=== PATIENT | female | born 1990 | race Caucasian/White ===

== ENCOUNTER 2017-02-18 14:18 | Emergency (ER) | payer OTHER ==
--- NOTE | 2017-02-18 15:04 | ER Document Report ---
ED Medical Screen (RME) - General Stated Complaint: LEG SWELLING,REDNESS, PAIN Mode of Arrival: Ambulatory Information source: Patient Notes: Patient presents to emergency department with right lower leg pain and swelling. Patient is 33 weeks . Patient recently drove back from [place] approximately 7 hours. She reports slight pain and discomfort in the right lower leg.
--- NOTE | 2017-02-18 16:26 | XCELERA REPORT ---
[address] [address] Lower Extremity Venous Evaluation Name: MADISYN MOREAU Age: 26 yrs Gender: Female : 1990 Patient Status: Preadmit Patient Location: ER Study Date: 02/18/2017 03:13 PM Procedure: Color flow and duplex imaging of the veins of the right lower extremity as well as the left Common Femoral vein. Reason For Study: RLE PAIN SWELLING Ordering Physician: CARLEY FALK Performed By: Magdalena Alex Right Sided Venous Evaluation Normal vessel filling wall to wall, compression and augmentation as well as Colour flow down to the infrageniculate veins. Left Sided Venous Evaluation The left common femoral vein is fully compressible. Spontaneous and phasic flow is present in the left common femoral vein. Critical Findings Discussed with Veronica Mckeon at about 1600. Interpretation Summary No duplex evidence of DVT or obstruction in the right lower extremity nor in the left Common Femoral vein. : CARLEY FALK > Norberto Lora
[2017-02-18 18:07] VITALS: BP 116/68
--- NOTE | 2017-02-18 18:10 | ER Document Report ---
ED Extremity Problem, Lower - General Chief Complaint: Leg Swelling Stated Complaint: LEG SWELLING,REDNESS, PAIN Time seen by provider: 17:56 Mode of Arrival: Ambulatory Information source: Patient Notes: 26-year-old female presents to ED for complaint of bilateral leg swelling right worse than left. She is 33 weeks states she just drove from [place] to [place] about 7 hours. She reports she did have slight pain in the right lower leg but now she states that they just feel tight from the swelling. She states her blood pressure normally is 117/70 and today her blood pressure is 133/65. - HPI Patient complains to provider of: Pain, Swelling Location: Leg Occurred: This morning Onset/Duration: Gradual Quality of pain: Other - Tight Severity: Mild Pain Level: 1 Context: Other - Legs feel tight Recent injury: No Exacerbated by: Nothing Relieved by: Elevation, Rest - Related Data Allergies/Adverse Reactions: No Known Allergies Allergy (Verified 02/18/17 18:13) Past Medical History - General Information source: Patient - Social History Smoking Status: Never Smoker Cigarette use (# per day): No Chew tobacco use (# tins/day): No Smoking Education Provided: No Frequency of alcohol use: None Drug Abuse: None Lives with: Family Family History: Reviewed & Not Pertinent - Past Medical History Cardiac Medical History: Reports: None Pulmonary Medical History: Reports: None EENT Medical History: Reports: None Neurological Medical History: Reports: None Endocrine Medical History: Reports: None Renal/ Medical History: Reports: None Malignancy Medical History: Reports: None GI Medical History: Reports: None Musculoskeltal Medical History: Reports None Skin Medical History: Reports None Psychiatric Medical History: Reports: None Traumatic Medical History: Reports: None Infectious Medical History: Reports: None Surgical Hx: Negative Past Surgical History: Reports: None Review of Systems - Review of Systems Constitutional: No symptoms reported EENT: No symptoms reported Cardiovascular: No symptoms reported Respiratory: No symptoms reported Gastrointestinal: No symptoms reported Genitourinary: No symptoms reported Female Genitourinary: No symptoms reported Musculoskeletal: Leg swelling, Ankle swelling Skin: No symptoms reported Hematologic/Lymphatic: No symptoms reported Neurological/Psychological: No symptoms reported -: Yes All other systems reviewed and negative Physical Exam - Vital signs Vitals: Temp Pulse BP Pulse Ox 97.5 F 77 133/65 H 98 02/18/17 14:59 02/18/17 14:59 02/18/17 14:59 02/18/17 14:59 Interpretation: Normal. No: Hypertensive - Blood pressure is 116/68 on the left in 116/64 on the right she is not hypertensive - General General appearance: Appears well, Alert - HEENT Head: Normocephalic, Atraumatic Eyes: Normal Pupils: PERRL - Respiratory Respiratory status: No respiratory distress Chest status: Nontender Breath sounds: Normal Chest palpation: Normal - Cardiovascular Rhythm: Regular Heart sounds: Normal auscultation Murmur: No - Abdominal Inspection: Normal Distension: No distension Bowel sounds: Normal Tenderness: Nontender Organomegaly: No organomegaly - Back Back: Normal, Nontender - Extremities General upper extremity: Normal inspection, Nontender, Normal color, Normal ROM , Normal temperature General lower extremity: Normal inspection, Nontender, Normal color, Normal ROM , Normal temperature, Normal weight bearing Calf: No: Tender - States her cast feels tight but are not tender to the touch Left calf in cm: 41 Right calf in cm: 41 Ankle: Edema - Mild edema less than 2+ Foot: Edema - Mild edema less than 2+ - Neurological Neuro grossly intact: Yes Cognition: Normal Orientation: AAOx4 Quang Coma Scale Eye Opening: Spontaneous [place] Coma Scale Verbal: Oriented [place] Coma Scale Motor: Obeys Commands Quang Coma Scale Total: 15 Speech: Normal Motor strength normal: LUE, RUE, LLE, RLE Sensory: Normal - Psychological Associated symptoms: Normal affect, Normal mood - Skin Skin Temperature: Warm Skin Moisture: Dry Skin Color: Normal Course - Re-evaluation Re-evalutation: 02/18/17 18:[address] Shaw with the results of the Doppler blood pressure and urine. Discussed results with patient and will discharge patient home to follow -up with her CASING OPERATOR. She is to take a copy of the Doppler and labs with her to her CASING OPERATOR appointment on the - Vital Signs Vital signs: Temp Pulse Resp BP Pulse Ox 97.5 F 77 116/68 98 02/18/17 14:59 02/18/17 14:59 02/18/17 18:06 02/18/17 14:59 Discharge - Discharge Clinical Impression: Leg swelling in in third trimester Condition: Stable Disposition: HOME, SELF-CARE Additional Instructions: You were seen today for some swelling to your legs. With some tightness after you traveled to [place] and back. Your venous Doppler does not show any clot. Your urine is negative for any protein. Your repeat blood pressure was 116/ 68 on the left and 116/64 on the right. You will need to go home and relax, elevate your legs, and follow-up with your CASING OPERATOR in the next 2-3 days. FOLLOW-UP CARE: If you have been referred to a physician for follow-up care, call the physician s office for an appointment as you were instructed or within the next two days. If you experience worsening or a significant change in your symptoms, notify the physician immediately or return to the Emergency Department at any time for re-evaluation.
[2017-02-18 18:11] LABS: AMORPHOUS SEDIMENT,URINE TRACE /HPF; APPEARANCE,URINE SLIGHTLY-CLOUDY; BILIRUBIN,URINE NEGATIVE (NEGATIVE); GLUCOSE, URINE NEGATIVE (NEGATIVE); KETONES,URINE NEGATIVE (NEGATIVE); LEUKOCYTE ESTERASE,URINE NEGATIVE (NEGATIVE); NITRITE,URINE NEGATIVE (NEGATIVE); PROTEIN,URINE NEGATIVE (NEGATIVE); URINE SPECIFIC GRAVITY 1.008; UROBILINOGEN,URINE NEGATIVE mg/dL (<2.0)
== END 2017-02-18 18:29 | disposition home or self-care (01) ==
LOC: ER 14:18
DX: O26.93 Pregnancy related conditions, unspecified, third trimester (principal); R22.43 Localized swelling, mass and lump, lower limb, bilateral; Z3A.33 33 weeks gestation of pregnancy
CPT/HCPCS: 81001; 87086; 93971; 99283

== ENCOUNTER 2017-04-04 12:33 | Outpatient (CLI) | payer OTHER ==
[2017-04-04 15:37] LABS: ABSOLUTE LYMPHOCYTES (AUTO) 2.2 10^3/uL (0.5-4.7); ABSOLUTE MONOCYTES (AUTO) 0.5 10^3/uL (0.1-1.4); ABSOLUTE NEUT (AUTO) 9.4 10^3/uL (1.7-8.2); BASOPHILS % (AUTO) 0.4 % (0-2); EOSINOPHILS % (AUTO) 0.3 % (0-6); HEMATOCRIT 39.5 % (36.0-47.0); HEMOGLOBIN 12.8 g/dL (12.0-15.5); HGB HCT DIFFERENCE -1.1; LYMPHOCYTES % (AUTO) 17.8 % (13-45); MEAN CORPUSCULAR HEMOGLOBIN 27.3 pg (27.0-33.4); MEAN CORPUSCULAR HGB CONC 32.4 g/dL (32.0-36.0); MEAN CORPUSCULAR VOLUME 84 fl (80-97); MONOCYTES % (AUTO) 4.4 % (3-13); RED BLOOD COUNT 4.69 10^6/uL (3.72-5.28); RED CELL DISTRIBUTION WIDTH 14.5 % (11.5-14.0); SEGMENTED NEUTROPHILS % (AUTO) 77.1 % (42-78); WHITE BLOOD COUNT 12.2 10^3/uL (4.0-10.5)
[2017-04-04 15:54] LABS: ALANINE AMINOTRANSFERASE 19 U/L (9-52); ALBUMIN 3.2 g/dL (3.5-5.0); ALKALINE PHOSPHATASE 157 U/L (38-126); ANION GAP 9 (5-19); ASPARTATE AMINO TRANSFERASE 14 U/L (14-36); BILIRUBIN,DIRECT 0.2 mg/dL (0.0-0.4); BILIRUBIN,TOTAL 0.4 mg/dL (0.2-1.3); BLOOD UREA NITROGEN 6 mg/dL (7-20); CALCIUM 9.7 mg/dL (8.4-10.2); CARBON DIOXIDE 23 mmol/L (22-30); CHLORIDE 104 mmol/L (98-107); GLUCOSE 70 mg/dL (75-110); LDH 358 U/L (313-618); POTASSIUM 4.3 mmol/L (3.6-5.0); SODIUM 136.2 mmol/L (137-145); TOTAL PROTEIN 6.2 g/dL (6.3-8.2)
[2017-04-04 16:15] LABS: APPEARANCE,URINE CLEAR; BILIRUBIN,URINE NEGATIVE (NEGATIVE); GLUCOSE, URINE NEGATIVE (NEGATIVE); KETONES,URINE NEGATIVE (NEGATIVE); LEUKOCYTE ESTERASE,URINE TRACE (NEGATIVE); NITRITE,URINE NEGATIVE (NEGATIVE); PROTEIN,URINE NEGATIVE (NEGATIVE); URINE SPECIFIC GRAVITY 1.001; UROBILINOGEN,URINE NEGATIVE mg/dL (<2.0)
[2017-04-04 16:37] LABS: URINE BARBITURATES SCREEN NEGATIVE; URINE METHADONE SCREEN NEGATIVE; URINE OPIATES LOW NEGATIVE; URINE PHENCYCLIDINE SCREEN NEGATIVE
[2017-04-04 16:41] LABS: URINE CREATININE 7.5 mg/dL (16-327); URINE PROTEIN 14.6 mg/dL (<12)
== END 2017-04-04 16:31 | disposition home or self-care (01) ==
LOC: LC 12:33
PROVIDERS: ATTEND Obstetrics & Gynecology
PROC: 4A1HXCZ Monitoring of Products of Conception, Cardiac Rate, External Approach (ICD-10-PCS; principal; 2017-04-04)
DX: O48.0 Post-term pregnancy (principal); Z3A.40 40 weeks gestation of pregnancy
CPT/HCPCS: 36415; 59025; 80053; 80307; 81001; 82570; 83615; 84156; 84550; 85025

== ENCOUNTER 2017-04-04 19:06 | Inpatient (IN) | payer OTHER ==
[2017-04-04 20:00] LABS: ABSOLUTE EOSINOPHILS # (AUTO) 0.1 10^3/uL (0.0-0.6); ABSOLUTE LYMPHOCYTES (AUTO) 2.8 10^3/uL (0.5-4.7); ABSOLUTE MONOCYTES (AUTO) 0.9 10^3/uL (0.1-1.4); ABSOLUTE NEUT (AUTO) 8.9 10^3/uL (1.7-8.2); BASOPHILS % (AUTO) 0.3 % (0-2); EOSINOPHILS % (AUTO) 0.4 % (0-6); HEMATOCRIT 36.2 % (36.0-47.0); HEMOGLOBIN 11.8 g/dL (12.0-15.5); HGB HCT DIFFERENCE -0.8; LYMPHOCYTES % (AUTO) 21.9 % (13-45); MEAN CORPUSCULAR HEMOGLOBIN 27.4 pg (27.0-33.4); MEAN CORPUSCULAR HGB CONC 32.6 g/dL (32.0-36.0); MEAN CORPUSCULAR VOLUME 84 fl (80-97); MONOCYTES % (AUTO) 6.7 % (3-13); RED CELL DISTRIBUTION WIDTH 14.5 % (11.5-14.0); SEGMENTED NEUTROPHILS % (AUTO) 70.7 % (42-78); WHITE BLOOD COUNT 12.6 10^3/uL (4.0-10.5)
[2017-04-04 20:03] LABS: APPEARANCE,URINE SLIGHTLY-CLOUDY; BILIRUBIN,URINE NEGATIVE (NEGATIVE); GLUCOSE, URINE NEGATIVE (NEGATIVE); KETONES,URINE NEGATIVE (NEGATIVE); LEUKOCYTE ESTERASE,URINE NEGATIVE (NEGATIVE); NITRITE,URINE NEGATIVE (NEGATIVE); PROTEIN,URINE NEGATIVE (NEGATIVE); URINE SPECIFIC GRAVITY 1.014; UROBILINOGEN,URINE NEGATIVE mg/dL (<2.0)
[2017-04-04 20:23] LABS: URINE BARBITURATES SCREEN NEGATIVE; URINE METHADONE SCREEN NEGATIVE; URINE OPIATES LOW NEGATIVE; URINE PHENCYCLIDINE SCREEN NEGATIVE
[2017-04-04] MEDS ORDERED: RINGERS SOLUTION,LACTATED 300 ML IV ONE (20:33)
[2017-04-04] MEDS ORDERED: RINGERS SOLUTION,LACTATED 1,000 ML IV PRN (20:33)
[2017-04-04] MEDS: MISOPROSTOL 0.1 MG TABLET PV SCH (22:23)
[2017-04-04] MEDS ORDERED: MISOPROSTOL 0.1 MG TABLET ONE (22:23)
[2017-04-04] MEDS: MISOPROSTOL 0.1 MG TABLET PO SCH (22:24)
[2017-04-05] MEDS ORDERED: MISOPROSTOL 0.1 MG TABLET ONE (02:19)
[2017-04-05] MEDS: MISOPROSTOL 0.1 MG TABLET PV SCH (02:21)
[2017-04-05] MEDS: MISOPROSTOL 0.1 MG TABLET PO SCH (02:21)
[2017-04-05] MEDS ORDERED: BENZOIN/ALOE VERA/STORAX/TOLU TINCTURE 60 ML TP PRN (03:09)
[2017-04-05] MEDS ORDERED: EPHEDRINE SULFATE INJ 50 MG/1 ML AMPULE IV PRN (03:09)
[2017-04-05] MEDS ORDERED: FENTANYL/BUPIVACAINE/NS/PF 100 ML EPI PRN (03:09)
[2017-04-05] MEDS ORDERED: BUPIVACAINE HCL 0.25 % INJ/PF (2.5 MG/1 ML) 30 ML VIAL INFIL ONE (03:09)
[2017-04-05] MEDS ORDERED: EPHEDRINE SULFATE INJ 50 MG/1 ML AMPULE IV ONE (03:09)
[2017-04-05] MEDS ORDERED: CITRIC ACID/SODIUM CITRATE ORAL SOLN 15 ML UDCUP ONE (05:21)
[2017-04-05] MEDS ORDERED: CEFAZOLIN 2 GM/D5W RTU 2 GM/50 ML RTUPB IV ONE (05:21)
[2017-04-05] MEDS ORDERED: LIDOCAINE 2% INJ-PF (20 MG/ML) 10 ML AMPUL ONE (05:33)
[2017-04-05] MEDS ORDERED: EPHEDRINE SULFATE INJ 50 MG/1 ML AMPULE ONE ×2 (05:37→05:47)
[2017-04-05] MEDS ORDERED: FENTANYL/BUPIVACAINE/NS/PF 200 MCG/100 ML RTUINJ EPI ONE (05:38)
[2017-04-05] MEDS ORDERED: BUPIVACAINE HCL 0.25 % INJ/PF (2.5 MG/1 ML) 30 ML VIAL ONE (05:38)
[2017-04-05] MEDS ORDERED: ONDANSETRON HCL INJ/PF 4 MG/2 ML SDV ONE (05:45)
[2017-04-05] MEDS ORDERED: FENTANYL CITRATE INJ/PF 100 MCG/2 ML AMPUL ONE (05:47)
[2017-04-05] MEDS ORDERED: OXYTOCIN 10 UNIT/ML VIAL ONE (05:47)
[2017-04-05] MEDS ORDERED: MIDAZOLAM 2 MG/2 ML INJ ONE (05:47)
[2017-04-05] MEDS ORDERED: PROPOFOL INJ 200 MG/20 ML VIAL IV ONE (05:47)
[2017-04-05] MEDS ORDERED: ONDANSETRON HCL INJ/PF 4 MG/2 ML SDV IV ONE (06:00)
[2017-04-05] MEDS ORDERED: FENTANYL CITRATE INJ/PF 100 MCG/2 ML AMPUL IV PRN ×3 (06:17)
[2017-04-05] MEDS ORDERED: OXYCODONE-ACETAMINOPHEN 5-325 MG TABLET PO PRN ×3 (06:17→11:43)
[2017-04-05] MEDS ORDERED: MEPERIDINE HCL/PF INJ 25 MG/1 ML DISP.SYRIN IV PRN (06:17)
[2017-04-05] MEDS ORDERED: DIPHENHYDRAMINE HCL 50 MG/ML VIAL IV PRN (06:17)
[2017-04-05] MEDS ORDERED: MORPHINE SULFATE 10 MG/ML INJ IV PRN (06:17)
--- NOTE | 2017-04-05 08:29 | OPERATIVE REPORT E ---
Operative Report NAME: MADISYN MOREAU : 1990 AGE: 26Y DATE OF SURGERY: 04/05/2017 ROOM: LR200 PREOPERATIVE DIAGNOSES: 1. INTRAUTERINE AT 40 WEEKS 1 DAY. 2. PREECLAMPSIA WITH MILD FEATURES. 3. NONREASSURING HEART TONES. POSTOPERATIVE DIAGNOSES: 1. INTRAUTERINE AT 40 WEEKS 1 DAY. 2. PREECLAMPSIA WITH MILD FEATURES. 3. NONREASSURING HEART TONES. OPERATION: Low transverse hysterotomy section. SURGEON: MATILDE ARNOLD M.D. ANESTHESIA: Spinal, Montrell Huitron MD ESTIMATED BLOOD LOSS: 600 mL. PATHOLOGY: None. FINDINGS: Female infant in cephalic presentation with Apgars of 9 and 9. Weight 6 pounds 8 ounces. PROCEDURE IN DETAIL: The patient was taken to the operating room and prepared and draped in the normal sterile fashion in the supine position with a left campoverde tilt. Transverse skin incision was made with the scalpel and carried through to the underlying layer of the fascia with the same scalpel. The fascia was excised in the midline and extended laterally with De Souza scissors. The rectus muscles were dissected from the rectus muscles sharply with De Souza scissors. The rectus muscle was divided and the peritoneum was entered bluntly with surgeon finger fracture. The bladder blade was inserted with good visualization of the bladder and the uterus. The hysterotomy was nicked with a scalpel and extended laterally with surgeon finger fracture. The was then delivered atraumatically. The nose and mouth were suctioned with the suction bulb and cord was clamped and cut. The was handed off to the waiting pediatricians. The cord blood was collected and the placenta was removed manually. The uterus was exteriorized, cleared of clots and debris and the hysterotomy was closed with 0 Monocryl in a running locked fashion. A second layer of the same suture was used to imbricate to ensure hemostasis. The uterus was then returned to the abdomen. The peritoneal cavity was cleared of clots and debris. The rectus muscle and peritoneum were reapproximated with 2-0 chromic with a mattress suture. The fascia was closed with 0 Vicryl. The subcutaneous layer was closed with plain catgut and the skin was closed with 4-0 Vicryl. The patient tolerated the procedure well. Sponge, lap, and needle counts were correct x2 and the patient was taken to recovery in stable condition. DICTATING PHYSICIAN: MATILDE ARNOLD M.D. [id number] PHY#: [id number] ID: [id number] JOB#: [id number] ACCT: [id number] cc:MATILDE ARNOLD M.D. >
[2017-04-05] MEDS ORDERED: BENZOCAINE/MENTHOL AEROSOL SPRAY 56 ML TOP PRN (08:40)
[2017-04-05] MEDS ORDERED: MEASLES,MUMPS&RUBELLA VACC/PF 0.5 ML VIAL SUBCUT PRN ×2 (08:40→11:43)
[2017-04-05] MEDS ORDERED: ZOLPIDEM TARTRATE 5 MG TABLET PO PRN (08:40)
[2017-04-05] MEDS ORDERED: MAGNESIUM HYDROXIDE SUSP 30 ML UDCUP PO PRN (08:40)
[2017-04-05] MEDS ORDERED: PSEUDOEPHEDRINE HCL 30 MG TABLET PO PRN (08:40)
[2017-04-05] MEDS ORDERED: DIPHENHYDRAMINE HCL 25 MG CAPSULE PO PRN (08:40)
[2017-04-05] MEDS ORDERED: DIBUCAINE 1% OINTMENT 28 GM TP PRN (08:40)
[2017-04-05] MEDS ORDERED: ACETAMINOPHEN 650 MG SUPP.RECT PR PRN (08:40)
[2017-04-05] MEDS ORDERED: DIPH/PERTUSS(ACELL)/TETANUS VAC/PF 0.5 ML SYR (>=10YO) IM PRN ×2 (08:40→11:43)
[2017-04-05] MEDS ORDERED: OXYTOCIN/NORMAL SALINE 1,000 ML IV PRN ×2 (08:40→11:43)
[2017-04-05] MEDS ORDERED: PROMETHAZINE HCL 25 MG TABLET PO PRN (08:40)
[2017-04-05] MEDS ORDERED: NA PHOS,M-B/NA PHOS,DI-BA (ADULT) 133 ML ENEMA PR PRN (08:40)
[2017-04-05] MEDS ORDERED: PROMETHAZINE HCL INJ 25 MG/1 ML VIAL IV PRN ×2 (08:40→11:43)
[2017-04-05] MEDS ORDERED: GLYCERIN/WITCH HAZEL LEAF 1 EACH MED..PAD TP PRN (08:40)
[2017-04-05] MEDS ORDERED: PROMETHAZINE HCL 25 MG SUPP.RECT PR PRN (08:40)
[2017-04-05] MEDS ORDERED: ACETAMINOPHEN WITH CODEINE #3 TABLET PO PRN ×2 (08:40)
--- NOTE | 2017-04-05 08:46 | Admission Physical ---
Datetime Report Generated by CPN: 04/05/2017 08:45 CURRENT ADMISSION Chief Complaint: Scheduled Induction of Labor Indication for Induction: PreEclampsia Admit Plan: Admit to Unit; Initiate Labor Induction Protocol ALLERGIES Medication Allergies: No Medication Allergies: No Known Allergies (04/04/2017) Medication Allergies: No Known Allergies (02/18/2017) Latex: No Latex Allergies OBSTETRICAL HISTORY EDC: 04/04/2017 00:00 : 1 Para: 0 Gestational Diabetes: No Rh Sensitization: No Incompetent Cervix: No BABAR: No Infertility: No ART Treatment: No Uterine Anomaly: No IUGR: No Hx Previous C/S: No Macrosomia: No Hx Loss/Stillborn: No PIH: No Hx : No Placenta Previa/Abruption: No Depression/PP Depression: No PTL/PROM: No Post Hemorrhage: No Current Procedures: Ultrasound; NST Obstetrical History Comments: G1: current SEE RECORDS Alcohol: No Marijuana : No Cocaine: No Other Illicit Drugs: No Cigarettes: Former Smoker. 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: No Heart Disease: No Hosp/Surgery: No Autoimmune Disorder: No Anesthetic Complications: No Kidney Disease: No Abnormal Pap Smear: No Neuro/Epilepsy: No Psychiatric Disorders: No Other Medical Diseases: No Hepatitis/Liver Disease: No Significant Family History: No Varicosities/Phlebitis: No Trauma/Violence : No Thyroid Dysfunction: No Medical History Comments: GHTN INFECTIOUS HISTORY Gonorrhea: No Genital Herpes: No Chlamydia: No Tuberculosis: No Syphilis: No Hepatitis: No HIV/AIDS Exposure: No Rash or Viral Illness: No HPV: No PHYSICAL EXAM General: Normal HEENT: Normal Neurologic: Normal Thyroid: Normal Heart: Normal Lungs: Normal Breast: Normal Back: Normal Abdomen: Normal Genitourinary Exam: Normal Extremities: Normal DTRs: Normal Pelvic Type: Adequate Vital Signs: Reviewed Details Vital Signs: elevated bps no severe ranges VAGINAL EXAM Dilatation: 0 Effacement: 0 Station: -3 MEMBRANES Pooling: Negative Membranes: Intact FETUS A EGA: 40.0 Monitoring: External US FHR- Baseline: 150 Variability: Moderate 6-25bpm Accelerations: 15X15 Decelerations: None FHR Category: Category II Estimated Weight (gm): 4000 Presentation: Vertex PLANS FOR LABOR AND DELIVERY Pain Management: Epidural Feeding Preference: Breast Benefit of Breast Feed Discussed: Yes Circumcision: N/A INFORMED CONSENT Signature: with User ID: [email or web address]
[2017-04-05] MEDS: SENNOSIDES/DOCUSATE 8.6-50 MG 1 EACH TABLET PO SCH (09:50)
[2017-04-05] MEDS: PRENATAL VITAMIN W-O CA NO5/FE FUMARATE/FA CAPSULE PO SCH (09:50)
[2017-04-05] MEDS: DOCUSATE SODIUM 100 MG CAPSULE PO SCH ×2 (09:50→18:39)
[2017-04-05] MEDS: FAMOTIDINE 20 MG TABLET PO SCH ×2 (09:50→21:51)
[2017-04-05] MEDS: FERROUS SULFATE 325 MG TABLET PO SCH ×2 (09:51→18:39)
[2017-04-05] MEDS ORDERED: SIMETHICONE 80 MG TAB.CHEW PO PRN (11:43)
[2017-04-05] MEDS ORDERED: ACETAMINOPHEN 100 ML IV PRN (11:43)
[2017-04-05] MEDS ORDERED: HYDROMORPHONE HCL INJ/PF 2 MG/ML AMPULE IV PRN ×2 (11:43→11:46)
[2017-04-05] MEDS ORDERED: ACETAMINOPHEN 325 MG TABLET PO PRN (11:43)
[2017-04-05] MEDS ORDERED: HYDROMORPHONE HCL INJ/PF 2 MG/ML AMPULE ONE (11:46)
[2017-04-05] MEDS ORDERED: METOCLOPRAMIDE HCL INJ/PF 10 MG/2 ML SDV ONE (13:19)
[2017-04-05] MEDS ORDERED: PHENYLEPHRINE HCL INJ/PF 10 MG/1 ML SDV ONE (13:19)
[2017-04-05] MEDS ORDERED: IBUPROFEN 800 MG TABLET PO SCH (14:00)
[2017-04-05] MEDS: KETOROLAC TROMETHAMINE INJ/PF 30 MG/1 ML SDV IV SCH ×2 (15:03→21:51)
[2017-04-05] MEDS: OXYCODONE-ACETAMINOPHEN 5-325 MG TABLET PO PRN ×2 (15:16→20:34)
[2017-04-05] MEDS ORDERED: DOCUSATE SODIUM 100 MG CAPSULE PO SCH (18:00)
[2017-04-06] MEDS: OXYCODONE-ACETAMINOPHEN 5-325 MG TABLET PO PRN ×4 (02:33→19:27)
[2017-04-06] MEDS: KETOROLAC TROMETHAMINE INJ/PF 30 MG/1 ML SDV IV SCH (06:25)
[2017-04-06 06:45] LABS: HEMATOCRIT 32.6 % (36.0-47.0); HEMOGLOBIN 10.8 g/dL (12.0-15.5); HGB HCT DIFFERENCE -0.2; MEAN CORPUSCULAR HEMOGLOBIN 27.9 pg (27.0-33.4); MEAN CORPUSCULAR HGB CONC 33.1 g/dL (32.0-36.0); MEAN CORPUSCULAR VOLUME 84 fl (80-97); RED BLOOD COUNT 3.87 10^6/uL (3.72-5.28); RED CELL DISTRIBUTION WIDTH 14.3 % (11.5-14.0); WHITE BLOOD COUNT 11.5 10^3/uL (4.0-10.5)
--- NOTE | 2017-04-06 08:21 | PDOC PROGRESS REPORT ---
Subjective-OB Subjective: Post Delivery Day: 1 26 year old. Denies any needs at this time, states lochia is stable, pain is moderately well controlled, voiding without difficulty, passing gas, tolerating diet. Physical Exam (OB) Vital Signs: Temp Pulse Resp BP Pulse Ox 98.2 F 79 16 143/86 H 100 04/06/17 00:03 04/06/17 00:03 04/06/17 00:03 04/06/17 00:03 04/06/17 00:03 Intake & Output 04/05/17 04/06/17 04/07/17 06:59 06:59 06:59 Intake Total 820 Output Total 1900 Balance -1080 Weight 95.5 kg - PIH/Pre-Eclampsia DTR's: 2 + Clonus: Negative Headache: Absent Epigastric Pain: No Visual Changes: No - Dressing Removed: No Incision: Dressing, Well Approximated Closure Type: Surgical Glue - Lochia Lochia Amount: Scant < 10 ml Lochia Color: Rubra/Red - Abdomen Description: Tender Hernia Present: No Fundal Description: Firm Fundal Height: u/u - u/2 Objective-Diagnostic Laboratory: 04/06/17 06:32 04/06/17 06:32 WBC 11.5 H RBC 3.87 Hgb 10.8 L Hct 32.6 L MCV 84 MCH 27.9 MCHC 33.1 RDW 14.3 H Plt Count 147 L Assessment and Plan(PN) - Assessment and Plan (1) Pre-eclampsia Qualifiers: Trimester: third trimester Qualified Code(s): O14.93 - Unspecified pre-eclampsia, third trimester Is this a current diagnosis for this admission?: YesPlan: monitor bp (2) Delivery by emergency Is this a current diagnosis for this admission?: YesPlan: routine postop care - Time Spent with Patient Time with patient: Less than 15 minutes Critical Time spent with patient: Less than 15 minutes Medications reviewed and adjusted accordingly: Yes - Disposition Anticipated Discharge: Home Within: within 48 hours
[2017-04-06] MEDS ORDERED: PRENATAL VITAMIN W-O CA NO5/FE FUMARATE/FA CAPSULE PO SCH (10:00)
[2017-04-06] MEDS: PRENATAL VITAMIN W-O CA NO5/FE FUMARATE/FA CAPSULE PO SCH (10:51)
[2017-04-06] MEDS: FAMOTIDINE 20 MG TABLET PO SCH ×2 (10:51→21:31)
[2017-04-06] MEDS: SENNOSIDES/DOCUSATE 8.6-50 MG 1 EACH TABLET PO SCH (10:51)
[2017-04-06] MEDS: FERROUS SULFATE 325 MG TABLET PO SCH ×2 (10:51→19:13)
[2017-04-06] MEDS: DOCUSATE SODIUM 100 MG CAPSULE PO SCH ×2 (10:51→19:13)
[2017-04-07] MEDS: OXYCODONE-ACETAMINOPHEN 5-325 MG TABLET PO PRN ×3 (00:20→08:20)
[2017-04-07 07:59] VITALS: BP 135/87
--- NOTE | 2017-04-07 08:07 | PDOC DISCHARGE SUMMARY ---
Final Diagnosis Discharge Date: 04/07/17 - Final Diagnosis (1) Pre-eclampsia Is this a current diagnosis for this admission?: Yes (2) Delivery by emergency Is this a current diagnosis for this admission?: Yes (3) Acute blood loss anemia Is this a current diagnosis for this admission?: Yes Discharge Data - Discharge Medication Home Medications: Pnv No.122/Iron/Folic Acid [ Multi Tablet] 1 tab PO DAILY 04/04/17 Docusate Sodium [Colace 100 mg Capsule] 100 mg PO BID #60 capsule 04/07/17 Ferrous Sulfate [Feosol 325 mg Tablet] 325 mg PO BID #60 tablet 04/07/17 Ibuprofen [Motrin 800 mg Tablet] 800 mg PO Q8 #60 tablet 04/07/17 Oxycodone HCl/Acetaminophen [Percocet 5-325 mg Tablet] 2 tab PO Q4HP PRN #30 tablet 04/07/17 Gestational Age: 40.1 Reason(s) for Admission: Induction of Labor, PIH Procedures: NST Intrapartum Procedure(s): : Low Cervical, Transverse - Data Baby 1 Female at 1 minute: 9 at 5 minutes: 9 Weight: 2.948 kg Home with Mother: Yes Complications: No - Diagnosis Test Laboratory: Temp Pulse Resp BP Pulse Ox 98.0 F 61 16 146/86 H 100 04/07/17 07:52 04/07/17 07:52 04/07/17 07:52 04/07/17 07:52 04/07/17 07:52 04/04/17 04/04/17 04/06/17 19:20 19:42 06:32 RBC 4.30 3.87 Hgb 11.8 L 10.8 L Hct 36.2 32.6 L Urine Opiates Screen NEGATIVE - Discharge information/Instructions Discharge Activity: Balance Activity w/Rest, No Driving, No Lifting Over 10 Pounds, Pelvic Rest, Slowly Increase Activity, No tub bath, Walk Frequently Discharge Diet: Regular Disposition: HOME, SELF-CARE Follow up with: [facility] in: 1, Weeks
[2017-04-07] MEDS: PRENATAL VITAMIN W-O CA NO5/FE FUMARATE/FA CAPSULE PO SCH (10:23)
[2017-04-07] MEDS: DOCUSATE SODIUM 100 MG CAPSULE PO SCH (10:23)
[2017-04-07] MEDS: FERROUS SULFATE 325 MG TABLET PO SCH (10:23)
[2017-04-07] MEDS: SENNOSIDES/DOCUSATE 8.6-50 MG 1 EACH TABLET PO SCH (10:23)
[2017-04-07] MEDS: FAMOTIDINE 20 MG TABLET PO SCH (10:23)
--- NOTE | 2017-04-12 15:40 | PDOC DELIVERY SUMMARY ---
Delivery Summary - Maternal Hx : I Hx Para: I BLU: 04/04/17 Gestational Age: 40.1 Risk Factors: Induced HTN, Pre-Eclampsia Ruptured Membranes: AROM Fluids: Meconium Stained - Delivery Labor: Induction Presentation: Vertex Heart Rate Monitoring: Done Pre-Operatively Uterine Contraction Monitoring: External Pattern: Late Decels Support Person Present: Yes Location: OR : Primary Placenta: Within Normal Limits - Medications Type of Anesthesia:: Spinal - Assess and Care Baby 1 Female Delivery of Infant Date: 04/05/17 Delivery of Infant Time: 06:10 at 1 minute: 8 at 5 minutes: 9 Skin to Skin: Yes Mode of Transport: Bassinet - Delivery Personnel Corporate Travel Agent: VIPUL WHEELER MD: MATILDE ARNOLD
== END 2017-04-07 11:17 | disposition home or self-care (01) | DRG 765 ==
LOC: LR 19:06 → 2N 04-05 08:44
PROVIDERS: ADMIT Obstetrics & Gynecology; ATTEND Obstetrics & Gynecology
PROC: 10D00Z1 Extraction of Products of Conception, Low, Open Approach (ICD-10-PCS; principal; 2017-04-05)
DX: O13.4 Gestational [pregnancy-induced] hypertension without significant proteinuria, complicating childbirth (principal); D62 Acute posthemorrhagic anemia; O36.0930 Maternal care for other rhesus isoimmunization, third trimester, not applicable or unspecified; O14.04 Mild to moderate pre-eclampsia, complicating childbirth; O76 Abnormality in fetal heart rate and rhythm complicating labor and delivery; O90.81 Anemia of the puerperium; Z3A.40 40 weeks gestation of pregnancy; Z37.0 Single live birth
CPT/HCPCS: 1961; 36415; 80307; 81005; 85025; 85027; 86592; 86850; 86900; 86901; 94760; 94799; J0690; J1170; J1885; J2250; J2370; J2405; J2590; J2704; J2765; J3010; J3490